=== PATIENT | male | born 1970 | race Two or more races ===

== ENCOUNTER 2017-06-23 13:17 | Emergency (ER) | payer OTHER ==
--- NOTE | 2017-06-23 14:39 | EKG ---
Test Reason : Blood Pressure : / mmHG Vent. Rate : 062 BPM Atrial Rate : 062 BPM P-R Int : 172 ms QRS Dur : 082 ms QT Int : 406 ms P-R-T Axes : 058 021 021 degrees QTc Int : 412 ms POOR DATA QUALITY, INTERPRETATION MAY BE ADVERSELY AFFECTED NORMAL SINUS RHYTHM NORMAL ECG NO PREVIOUS ECGS AVAILABLE Confirmed by MD ALANNA, AZALEA ([id number]) on 06/23/2017 2:38:57 PM Referred By: Confirmed By:AZALEA MONDRAGON MD
[2017-06-23 14:42] VITALS: BMI 33.7
[2017-06-23 14:49] LABS: BASO % 0.6 % (0-2.0); EOS % 0.3 % (0-4.5); HEMATOCRIT 40.7 % (35.4-49); HEMOGLOBIN 13.9 GM/dL (11.7-16.9); LYMPH % 23.3 % (8-40); MCH 31.4 pg (25.7-33.7); MCHC 34.1 g/dl (32.0-35.9); MEAN CELL VOLUME 92.1 fl (80-96); MEAN PLT VOLUME 8.4 fl (7.5-11.1); NEUT % 67.8 % (42.8-82.8); PLATELET COUNT 235 K/MM3 (134-434); RBC 4.41 M/mm3 (4.00-5.60); RDW 14.1 % (11.9-15.9); WHITE BLOOD COUNT 6.1 K/mm3 (4.0-10.0)
--- NOTE | 2017-06-23 15:04 | PDOC ---
History of Present Illness <Mushtaq Starks - Last Filed: 06/23/17 15:11> - History of Present Illness Initial Comments: 06/23/17 15:01 "The patient is a 47 year old male, with a significant PMH of HIV (on PEREZ, pt. is unsure of last CD4 count or viral load), asthma, GERD, depression and anxiety who presents to the emergency department with lightheadedness. The patient states he had an episode that lasted for approx. 30 minutes where he felt lightheaded and diaphoretic like he was going to pass out. He denies any loss of consciousness. He denies any chest pain, shortness of breath, palpitations or nausea. Pt currently reports no symptoms whatsoever. The patient states that today's episode is consistent with his prior panic attacks. He has had 3 similar episodes in the past week. They usually last 5-10 minutes. Today's episode was slightly longer in duration, lasting about 30 minutes, which prompted him to come to the ER. The patient states he has recently began seeing a psychologist for his anxiety and depression. The patient states he had 2 cups of coffee this morning and oatmeal but reports he has been eating less than usual secondary to his anxiety. The patient states he is currently on antibiotics for right lower extremity cellulitis for 1 week. Denies F/C. STates his leg is feeling much better. The patient denies chest pain, shortness of breath, headache and dizziness. Denies fever, nausea, vomit, diarrhea and constipation. Denies dysuria, frequency, urgency and hematuria. Allergies: NKA Surgical history: 2015 Bariatric surgery, " <Roberto Hendrickson - Last Filed: 06/23/17 17:20> - General Chief Complaint: Syncope/Near Syncope Stated Complaint: WEAKNESS Time Seen by Provider: 06/23/17 13:34 Past History <Mushtaq Starks - Last Filed: 06/23/17 15:11> - Past Medical History Asthma: Yes COPD: No GI Disorders: (gerd) Psychiatric Problems: Yes (anxiety, depression) - Surgical History GI Surgery: Yes (bariatric) - Suicide/Smoking/Psychosocial Hx Smoking History: Never smoked Have you smoked in the past 12 months: No Information on smoking cessation initiated: No Hx Alcohol Use: Yes (socially) Drug/Substance Use Hx: No Substance Use Type: None <Roberto Hendrickson - Last Filed: 06/23/17 17:20> - Past Medical History Allergies/Adverse Reactions: Allergies Allergy/AdvReac Type Severity Reaction Status Date / Time No Known Allergies Allergy Verified 06/23/17 15:07 Home Medications: Ambulatory Orders Albuterol Sulfate [Proair Hfa] 2 puff IH PRN PRN 06/23/17 Cyanocobalamin (Vitamin B-12) [Vitamin B-12] 500 mcg PO WEEKLY 06/23/17 Elviteg/Cob/Emtri/Tenof Alafen [Genvoya Tablet] 1 each PO DAILY 06/23/17 Hydroxyzine HCl 10 mg PO DAILY PRN 06/23/17 Mometasone/Formoterol [Dulera 200 Mcg/5 Mcg Inhaler] 2 inh IH BID 06/23/17 Zolpidem Tartrate 10 mg PO HS PRN 06/23/17 traZODone HCL [Desyrel -] 100 mg PO HS 06/23/17 Review of Systems - Review of Systems Comments:: 06/23/17 15:04 "GENERAL/CONSTITUTIONAL: +Diaphoresis. No fever or chills. No weakness. HEAD, EYES, EARS, NOSE AND THROAT: No change in vision. No ear pain or discharge. No sore throat. CARDIOVASCULAR: No chest pain or shortness of breath. RESPIRATORY: No cough, wheezing, or hemoptysis. GASTROINTESTINAL: No nausea, vomiting, diarrhea or constipation. GENITOURINARY: No dysuria, frequency, or change in urination. MUSCULOSKELETAL: No joint or muscle swelling or pain. No neck or back pain. SKIN: No rash NEUROLOGIC: +Lightheadedness. No headache, vertigo, loss of consciousness, or change in strength/sensation. ENDOCRINE: No increased thirst. No abnormal weight change. HEMATOLOGIC/LYMPHATIC: No anemia, easy bleeding, or history of blood clots. ALLERGIC/IMMUNOLOGIC: No hives or skin allergy. " <Roberto Hendrickson - Last Filed: 06/23/17 17:20> *Physical Exam - Vital Signs Last Vital Signs Temp Pulse Resp BP Pulse Ox 98.4 F 65 16 127/77 100 06/23/17 13:25 06/23/17 13:25 06/23/17 13:25 06/23/17 13:25 06/23/17 13:25 <Mushtaq Starks - Last Filed: 06/23/17 15:11> - Vital Signs Last Vital Signs Temp Pulse Resp BP Pulse Ox 98.4 F 65 16 127/77 100 06/23/17 13:25 06/23/17 13:25 06/23/17 13:25 06/23/17 13:25 06/23/17 13:25 - Physical Exam Comments: 06/23/17 15:04 "GENERAL: Awake, alert, and fully oriented, in no acute distress. HEAD: No signs of trauma EYES: PERRLA, EOMI, sclera anicteric, conjunctiva clear ENT: Auricles normal inspection, hearing grossly normal, nares patent, oropharynx clear without exudates. Moist mucosa NECK: Nontender, no stepoffs, Normal ROM, supple, no lymphadenopathy, JVD, or masses LUNGS: Breath sounds equal, clear to auscultation bilaterally. No wheezes, and no crackles HEART: Regular rate and rhythm, normal S1 and S2, no murmurs, rubs or gallops ABDOMEN: Soft, nontender, normoactive bowel sounds. No guarding, no rebound. No masses EXTREMITIES: Normal range of motion, no edema. No clubbing or cyanosis. No cords, erythema, or tenderness NEUROLOGICAL: Cranial nerves II through XII intact. 5/5 strength and sensation in all extremities, Normal speech, normal gait, normal cerebellar function SKIN: Warm, Dry, normal turgor, no rashes or lesions noted. " <mEekaRoberto - Last Filed: 06/23/17 17:20> Heart Score/ECG Review - ECG Impressions Comment:: 06/23/17 15:04 NSR ,no BEVERLEY/STDs, no TWIs, axis wnl, intervals wnl, rate 62 <OuRoberto - Last Filed: 06/23/17 17:20> ED Treatment Course - LABORATORY CBC & Chemistry Diagram: 06/23/17 14:24 06/23/17 14:24 <Mushtaq Starks - Last Filed: 06/23/17 15:11> - LABORATORY CBC & Chemistry Diagram: 06/23/17 14:24 06/23/17 14:24 <EmekaRoberto - Last Filed: 06/23/17 17:20> Medical Decision Making - Medical Decision Making 06/23/17 15:05 47 M with transient episode of lightheadedness and diaphoresis, consistent with pt's prior episodes of panic attacks. Pt denies any symptoms currently. Has normal EKG, making cardiac pathology unlikely. - Labs, trop - Reassess 06/23/17 17:18 Labs wnl Pt reassessed - continues to feel well with no lightheadedness or diaphoresis. Pt denies SI/HI/AVH, stating he feels well and ready to go home. Pt is well appearing, with normal vitals. Clinically stable for DC at this time. I discussed the physical exam findings, ancillary test results and final diagnoses with the patient. I answered all of the patient's questions. The patient was satisfied with the care received and felt comfortable with the discharge plan and treatment plan. The patient agrees to follow up with the primary care physician within 24-72 hours. <Roberto Hendrickson - Last Filed: 06/23/17 17:20> *DC/Admit/Observation/Transfer - Attestations Scribe Attestion: 06/23/17 15:11 Documentation prepared by Mushtaq Starks, acting as medical art therapist for Roberto Hendrickson MD. <Mushtaq Starks - Last Filed: 06/23/17 15:11> - Attestations Physician Attestion: 06/23/17 17:20 I, Dr. Roberto Hendrickson MD, attest that this document has been prepared under my direction and personally reviewed by me in its entirety. I further attest, that it accurately reflects all work, treatment, procedures and medical decision -making performed by me. <Roberto Hendrickson - Last Filed: 06/23/17 17:20> Diagnosis at time of Disposition: Lightheadedness - Discharge Dispostion Disposition: HOME - Patient Instructions Printed Discharge Instructions: Anxiety and Panic Attacks (Alternative Therapy) Additional Instructions: Please follow up with your primary doctor within 1 week. If you experience any chest pain, shortness of breath, or any other concerning symptoms, return to the ER immediately.
[2017-06-23 15:17] LABS: ALBUMIN 3.3 g/dl (3.4-5.0); ALK PHOS 53 U/L (45-117); ANION GAP 4 (8-16); BILIRUBIN,TOTAL 0.4 mg/dL (0.2-1.0); BLOOD UREA NITROGEN 12 mg/dL (7-18); CALCIUM 8.1 mg/dL (8.5-10.1); CHLORIDE 108 mmol/L (98-107); CO2 28 mmol/L (21-32); CREATININE 0.9 mg/dL (0.7-1.3); GLUCOSE,RANDOM 94 mg/dL (74-106); SGPT/ALT 35 U/L (12-78); SODIUM 140 mmol/L (136-145); TOT PROT 6.7 g/dl (6.4-8.2)
[2017-06-23 15:23] LABS: POTASSIUM 4.2 mmol/L (3.5-5.1); SGOT/AST 38 U/L (15-37)
[2017-06-23 17:54] VITALS: BP 128/70; PULSE 67; TEMP 98
== END 2017-06-23 17:54 | disposition home or self-care (01) ==
LOC: JER 13:17
DX: R42 Dizziness and giddiness (principal); K21.9 Gastro-esophageal reflux disease without esophagitis; F41.8 Other specified anxiety disorders; Z21 Asymptomatic human immunodeficiency virus [HIV] infection status; J45.909 Unspecified asthma, uncomplicated
CPT/HCPCS: 36415; 80053; 82550; 82553; 84484; 85025; 93005; 93010; 99285-25